=== PATIENT | male | born 1960 | race African-American/Black ===

== ENCOUNTER 2016-10-12 07:38 | Day surgery (SDC) | payer OTHER ==
[~2016-10-12] VITALS: Ht 185.4 cm; Wt 97.1 kg
[~2016-10-12 07:38] MED LIST: ASPI-664 PO; EMTR1TAB11 PO; FLUC100T PO; LEXI700 PO; NORV100 PO; OLAN5TAB5 PO; PROP10TA6 PO; TRAZ100T15 PO; ZIPR20CA7 PO
[2016-10-12 09:27] VITALS: Ht 185.4 cm; Wt 97.1 kg
[2016-10-12] MEDS ORDERED: ELVI1TAB3 PO (09:39)
[2016-10-12] MEDS ORDERED: IBUP100T46 PO (09:39)
[2016-10-12] MEDS ORDERED: OLAN5TAB5 PO (09:39)
[2016-10-12] MEDS ORDERED: ANDRO GEL (09:39)
[2016-10-12] MEDS ORDERED: BUPROBAN (09:39)
[2016-10-12] MEDS ORDERED: PRAV40TA76 PO (09:39)
[2016-10-12 09:59] VITALS: BP 111/67; PULSE 68; RESP 16
[2016-10-12] MEDS ORDERED: PROPOFOL 20 ML ONE ×2 (09:59→10:53)
--- NOTE | 2016-10-12 11:14 | GILP ---
DATE OF PROCEDURE: 10/12/2016 NAME OF PROCEDURE: Colonoscopy. SURGEON: Melba Cortez MD PREOPERATIVE DIAGNOSIS: Screening colonoscopy to rule out colon polyps. POSTOPERATIVE DIAGNOSES: Suboptimal preparation, but rest of the colon appeared normal. DESCRIPTION OF PROCEDURE: After the informed written consent was obtained, the patient was asked to lie on the left lateral side. The patient was given intravenous anesthesia by anesthesiologist, Dr Chris Acosta. When the patient became somnolent, the Olympus video colonoscope was introduced into the rec juliette and scope was advanced all the way to the cecum. Entire colon appeared perfectly normal. Some stool was found to be scattered along the colon, and despite irrigation it cannot be completely keila sharath. Small polyps cannot be excluded. Endoscope at this time was withdrawn and the procedure was t erminated. PLAN: Recommend repeat colonoscopy in 5 years. Dictated By: MELBA CORTEZ MD NC/NTS Conf#: [id number] DID#: [id number] CC: FEDERICO COOK MD; MELBA CORTEZ MD;*EndCC*
[2016-10-12 11:19] VITALS: BP 120/78; PULSE 68; RESP 19
== END 2016-10-12 11:36 | disposition home or self-care (01) ==
LOC: GIL 07:38
PROVIDERS: ATTEND Internal Medicine Gastroenterology
DX: Z12.11 Encounter for screening for malignant neoplasm of colon (principal)
CPT/HCPCS: 45378; Z7610

== ENCOUNTER 2017-02-01 05:42 | Day surgery (SDC) | payer OTHER ==
[~2017-02-01] VITALS: Ht 185.4 cm; Wt 91.1 kg
[~2017-02-01 05:42] MED LIST changes: +ANDRO GEL; +BUPROBAN; +ELVI1TAB3 PO; -EMTR1TAB11 PO; -FLUC100T PO; +IBUP100T46 PO; -LEXI700 PO; -NORV100 PO; +PRAV40TA76 PO; -PROP10TA6 PO; +TIMOLOL 0.5% 5 ML OPH RIGHT EYE ONE; -ZIPR20CA7 PO
[2017-02-01 05:46] VITALS: Ht 185.4 cm; Wt 91.1 kg
[2017-02-01 05:51] VITALS: BP 116/67; PULSE 84; RESP 18
[2017-02-01] MEDS ORDERED: LEXI700 PO (06:00)
[2017-02-01] MEDS ORDERED: BUPR300T36 PO (06:00)
[2017-02-01] MEDS ORDERED: NORV100 PO (06:00)
[2017-02-01] MEDS ORDERED: SODIUM BICARBONATE (IV ADD) 50 ML ONE (06:37)
[2017-02-01] MEDS ORDERED: NEPAFENAC 0.1% 3 ML OPH OPER SCH (07:00)
[2017-02-01] MEDS ORDERED: MOXIFLOXACIN 0.5% 3 ML OPH OPER SCH (07:00)
[2017-02-01] MEDS ORDERED: CYCLOPENTOLATE 2% 2 ML OPH OPER SCH (07:00)
[2017-02-01] MEDS ORDERED: PHENYLephrine 10% 5 ML OPH OPER SCH (07:00)
[2017-02-01] MEDS ORDERED: LIDOCAINE 1% (MPF) 10 ML INJ INJ ONE (07:00)
[2017-02-01] MEDS ORDERED: LIDOCAINE 2% (SDV) 5 ML INJ ONE (07:27)
[2017-02-01] MEDS ORDERED: FENTAnyl 50 MCG/ML VIAL ONE (07:28)
[2017-02-01] MEDS ORDERED: PROPOFOL 20 ML ONE (07:28)
[2017-02-01] MEDS ORDERED: MIDAZOLAM 1 MG/ML 2 ML INJ ONE (07:28)
--- NOTE | 2017-02-01 07:28 | HPN ---
Date/Time of Note Date/Time of Note DATE: 02/01/17 TIME: 07:27 Interval H&P Admission Note Pt. seen H&P reviewed: No system changes PEYMAN MENDEZ MD Feb 01, 2017 07:28
[2017-02-01] MEDS ORDERED: FENTAnyl 50 MCG/ML VIAL IV PRN (08:00)
[2017-02-01] MEDS ORDERED: DIPHENHYDRAMINE 50 MG INJ IV PRN (08:00)
[2017-02-01] MEDS ORDERED: MEPERIDINE 25 MG INJ IV PRN (08:00)
[2017-02-01] MEDS ORDERED: ONDANSETRON 4 MG INJ IV PRN (08:00)
[2017-02-01] MEDS ORDERED: OXYCODONE/ACETAMINOPHEN (5/325) TAB PO PRN (08:00)
[2017-02-01] MEDS ORDERED: PROCHLORPERAZINE 10 MG INJ IV PRN (08:00)
[2017-02-01] MEDS ORDERED: HYDROmorphONE (0.2 MG/ML) 10ML SYG IV PRN (08:00)
[2017-02-01 08:18] VITALS: BP 111/66; PULSE 72; RESP 14
[2017-02-01 08:23] VITALS: BP 113/65; PULSE 72; RESP 14
[2017-02-01 08:28] VITALS: BP 114/66; PULSE 72; RESP 14
--- NOTE | 2017-02-01 08:28 | OPR ---
Date/Time of Note Date/Time of Note DATE: 02/01/17 TIME: 08:23 Operative Report Preoperative Diagnosis mature cataract right eye Postoperative Diagnosis mature cataract right eye Operation/Procedure Performed cataract extraction with implantation of lens Surgeon: PEYMAN MENDEZ MD Anesthesia Type: MAC Estimated Blood Loss: none Transfusion Required: no Specimen: none Grafts/Implants: none Complications: no PEYMAN MENDEZ MD Feb 01, 2017 08:27
[2017-02-01 08:33] VITALS: BP 109/66; PULSE 65; RESP 16
--- NOTE | 2017-02-01 08:55 | OPR ---
DATE OF OPERATION: 02/01/2017 SURGEON: Chelsey Hurt MD MARBLE HELPER: None. ANESTHESIOLOGIST: PREOPERATIVE DIAGNOSIS: Senile nuclear sclerotic cataract, right eye. POSTOPERATIVE DIAGNOSIS: Senile nuclear sclerotic cataract, right eye. OPERATION: Kelman phacoemulsification with implantation of intraocular lens, right eye. PROCEDURE: Following standard preparation and draping of the patient, an aspirating lid speculum was placed for immobilization of the lids. A Superblade incision was made for access into the anterior chamber. Approximately 0.5 ml of 1% unpreserved Xylocaine was instilled into the anterior chamber, and after approximately 15 seconds, this was replaced with Viscoat. A clear corneal incision was then made using the 3.2 mm keratome, following which an anterior circular capsulorrhexis was made. The major portion of the lens cortex and nucleus was then dislocated from the capsular bag using hydrodissection. The KPE tip was introduced into the eye, and controlling movements of the lens with a two-handed technique, the major portion of the lens cortex and nucleus was removed, maintaining the lens in the plane of the iris. The remaining cortical material was removed via the irrigating-aspirating instrument. The capsular bag and the anterior chamber were re-formed using Viscoat. The proper power lens was then placed within the capsular bag. The viscoelastic was then removed from the eye and the eye re-formed with balanced salt solution. One 10-0 Vicryl suture was then used to ensure closure of the corneal incision. The eye was re-formed to normal pressure using balanced salt solution. The eye and cul-de-sacs were now simply flooded with 5% Betadine solution. One drop of Vigamox and one drop of Betagan solution were instilled into the eye. A light pressure dressing was applied, and the patient was returned to the recovery room in satisfactory condition. Dictated By: Chelsey Hurt MD /[email or web address]/[email or web address] /Document#: [id number]
[2017-02-01 09:00] VITALS: BP 114/66; PULSE 59; RESP 18
--- NOTE | 2017-02-02 09:58 | OPR ---
DATE OF OPERATION: 02/02/2017 PREOPERATIVE DIAGNOSIS: Mature cataract, right eye. POSTOPERATIVE DIAGNOSIS: Mature cataract, right eye. OPERATION PERFORMED: Phacoemulsification with implantation of intraocular lens, right eye. ANESTHESIA: Monitored anesthesia care along with local anesthesia. OPERATIVE PROCEDURE: Following standard preparation and draping of the patient, a lid speculum was placed for immobilization of the lids. A Superblade incision was made for access into the anterior chamber. A small amount of 1 percent nonpreserved Xylocaine was instilled into the anterior chamber and after approximately 15 seconds, this was replaced with Viscoat. A clear corneal incision was then made using the 3 mm keratome following which an anterior capsulorrhexis was made. The major portion of the lens cortex and nucleus was then dislocated from the capsular bag using hydrodissection. The KPE tip was introduced into the eye and controlling movements of the lens with a 2-handed technique, the major portion of the lens cortex and nucleus was removed, maintaining the lines in the plane of the iris. The remaining cortical material was removed with the irrigating-aspirating instrument. The capsular bag and anterior chamber were reformed using Viscoat. The proper power lens was then placed within the capsular bag. The viscoelastic was then removed from the eye and the eye reformed with balanced salt solution. One 10-0 Vicryl suture was then used to ensure closure of the corneal incision. The eye was reformed to normal- pressure using balanced salt solution. The eye and the cul-de- sacs were now simply flooded with 5 percent Betadine solution. Antibiotic drops and Ketoralac drops were applied in the operative eye. A light pressure dressing was applied and the patient returned to the recovery room in satisfactory condition. Once in the recovery room, the patient received the usual postoperative instructions and follow-up appointments. Dictated By: Chelsey Hurt MD /[email or web address]/[email or web address] /Document#: [id number]
== END 2017-02-01 09:19 | disposition home or self-care (01) ==
LOC: SDS 05:42
PROVIDERS: ATTEND Ophthalmology
DX: H26.8 Other specified cataract (principal); E78.5 Hyperlipidemia, unspecified
CPT/HCPCS: 66984; J2250; J3010; V2632; Z7512; Z7610